=== PATIENT | male | born 1960 | race Caucasian/White ===

== ENCOUNTER 2017-08-12 05:37 | Day surgery (SDC) | payer OTHER ==
[2017-08-12] MEDS ORDERED: CEFTRIAXONE 1 GM/50 ML (PMX) 50 ML IVPB (06:51)
[2017-08-12] MEDS ORDERED: CEFAZOLIN 1 GM INJ (07:23)
[2017-08-12] MEDS ORDERED: PROPOFOL 20 ML (07:23)
[2017-08-12] MEDS ORDERED: MIDAZOLAM 1 MG/ML 2 ML INJ (07:23)
[2017-08-12] MEDS ORDERED: FENTAnyl 50 MCG/ML VIAL (07:23)
[2017-08-12] MEDS ORDERED: DEXAMETHASONE 4 MG/ML 1 ML INJ (07:43)
[2017-08-12] MEDS ORDERED: ONDANSETRON 4 MG INJ (07:43)
[2017-08-12] MEDS ORDERED: KETOROLAC 30 MG INJ (07:43)
[2017-08-12] MEDS ORDERED: METOCLOPRAMIDE 10 MG INJ (07:43)
[2017-08-12] MEDS ORDERED: ROCURONIUM 50 MG INJ (08:53)
[2017-08-12] MEDS ORDERED: HYDROCODONE/APAP (5/325) TAB PO (09:00)
== END 2017-08-12 10:20 | disposition home or self-care (01) ==
LOC: SDS 05:37
DX: N20.1 Calculus of ureter (principal); E11.9 Type 2 diabetes mellitus without complications; E78.5 Hyperlipidemia, unspecified
CPT/HCPCS: 52356; 74480; 82962; 88300